=== PATIENT | male | born 1955 | race Caucasian/White ===

== ENCOUNTER → 2016-03-31 | Outpatient (CLI) | payer BC, OTHER ==
[~2016-03-31] MED LIST: ATOR-26 PO; LISI-729 PO; METO25TA56 PO; RXC5 PO
[2016-03-31 12:43] LABS: ESTIMATED AVERAGE GLUCOSE 114 mg/dl; HA1C FLAG Normal (Normal)
[2016-03-31 12:47] LABS: ALT/SGPT 52 U/L (12-78); AST/SGOT 25 U/L (15-37); BLOOD UREA NITROGEN 12 mg/dl (7-18); BUN/CREATININE RATIO 11.5 (10-20); CALCIUM 9.1 mg/dl (8.5-10.1); CARBON DIOXIDE 29 mmol/L (21-32); CHLORIDE 106 mmol/L (98-107); CHOLESTEROL 152 mg/dl (0-200); GLUCOSE 101 mg/dl (70-99); POTASSIUM 4.1 mmol/L (3.5-5.1); SODIUM 142 mmol/L (136-145)
[2016-03-31 12:49] LABS: ALB/GLOB RATIO 1.2 (0.9-2); ALKALINE PHOSPHATASE 118 U/L (45-117); CHOLESTEROL/HDL RATIO 3.6; HDL CHOLESTEROL 42 mg/dl; LDL CHOLESTEROL CALCULATED 81 mg/dl; TRIGLYCERIDES 146 mg/dl (0-150); VERY LOW DENSITY LIPOPROT CALC 29 mg/dl
== END | disposition home or self-care (01) ==
LOC: C.LABPVFM 07:49
PROVIDERS: ATTEND Family Medicine
DX: E78.5 Hyperlipidemia, unspecified (principal); R73.01 Impaired fasting glucose

== ENCOUNTER → 2016-10-01 | Outpatient (CLI) | payer BC ==
[2016-10-01 13:15] LABS: BASO % 0.2 %; BASO ABS # 0.01 K/uL (0-0.2); COMPLETE YES; EOS % 4.1 %; HEMATOCRIT 45.9 % (42-52); IG% 0.3 %; LYMPH % 29.1 %; LYMPH ABS # 1.72 K/uL (1.2-3.4); MEAN CORPUSCULAR HEMOGLOBIN 31.3 pg (25-34); MEAN CORPUSCULAR HGB CONC 32.9 g/dl (32-36); MEAN PLATELET VOLUME 10.4 fL (7.4-10.4); NEUT % 50.3 %; PLATELET COUNT 177 K/uL (130-400); RED BLOOD COUNT 4.83 M/uL (4.7-6.1); WHITE BLOOD COUNT 5.92 K/uL (4.8-10.8)
[2016-10-01 13:33] LABS: ALT/SGPT 50 U/L (12-78); AST/SGOT 27 U/L (15-37); BLOOD UREA NITROGEN 12 mg/dl (7-18); BUN/CREATININE RATIO 12.5 (10-20); CALCIUM 8.9 mg/dl (8.5-10.1); CARBON DIOXIDE 30 mmol/L (21-32); CHLORIDE 106 mmol/L (98-107); CREATININE 0.95 mg/dl (0.60-1.40); GLUCOSE 104 mg/dl (70-99); POTASSIUM 4.3 mmol/L (3.5-5.1); SODIUM 140 mmol/L (136-145)
[2016-10-01 13:36] LABS: ALB/GLOB RATIO 1.2 (0.9-2); ALKALINE PHOSPHATASE 113 U/L (45-117); CHOLESTEROL 129 mg/dl (0-200); CHOLESTEROL/HDL RATIO 3.8; HDL CHOLESTEROL 34 mg/dl; LDL CHOLESTEROL CALCULATED 69 mg/dl; TRIGLYCERIDES 131 mg/dl (0-150); VERY LOW DENSITY LIPOPROT CALC 26 mg/dl
== END | disposition home or self-care (01) ==
LOC: C.LABPVFM 07:56
PROVIDERS: ATTEND Family Medicine
DX: E78.5 Hyperlipidemia, unspecified (principal); I25.10 Atherosclerotic heart disease of native coronary artery without angina pectoris; R73.01 Impaired fasting glucose; K21.9 Gastro-esophageal reflux disease without esophagitis

== ENCOUNTER → 2017-04-06 | Outpatient (CLI) | payer BC ==
[2017-04-06 13:33] LABS: ALT/SGPT 49 U/L (12-78); BLOOD UREA NITROGEN 12 mg/dl (7-18); CALCIUM 9.1 mg/dl (8.5-10.1); CARBON DIOXIDE 27 mmol/L (21-32); CHOLESTEROL 139 mg/dl (0-200); CREATININE 0.99 mg/dl (0.60-1.40); GLUCOSE 108 mg/dl (70-99); SODIUM 139 mmol/L (136-145)
[2017-04-06 13:36] LABS: ALKALINE PHOSPHATASE 85 U/L (45-117); AST/SGOT 27 U/L (15-37); LDL CHOLESTEROL CALCULATED 65 mg/dl; TOTAL PROTEIN 7.2 gm/dl (6.4-8.2)
== END | disposition home or self-care (01) ==
LOC: C.LABPVFM 08:17
PROVIDERS: ATTEND Family Medicine
DX: E78.5 Hyperlipidemia, unspecified (principal); I25.10 Atherosclerotic heart disease of native coronary artery without angina pectoris; R73.01 Impaired fasting glucose; K21.9 Gastro-esophageal reflux disease without esophagitis; D22.9 Melanocytic nevi, unspecified

== ENCOUNTER 2019-04-23 08:08 | Observation (INO) ==
--- NOTE | 2019-03-26 09:57 | PAT Medication Instructions ---
Medication Instructions Date of Service March 26, 2019 Home Medications Medication Instructions Recorded metoprolol tartrate 25 mg tablet 25 mg PO BID #60 tab 10/15/18 metoprolol tartrate 25 mg tablet 25 mg PO BID aspirin [Aspirin Low Dose] 81 mg PO QAM atorvastatin 80 mg PO PM ezetimibe [Zetia] 10 mg PO QAM famotidine 20 mg PO DAILY PRN lisinopril 5 mg PO QAM DO NOT take the morning of surgery lisinopril 5 mg PO QAM Take morning of surgery With a small sip of water, OTHERWISE NOTHING TO EAT OR DRINK AFTER MIDNIGHT: metoprolol tartrate 25 mg tablet 25 mg PO BID aspirin [Aspirin Low Dose] 81 mg PO QAM ezetimibe [Zetia] 10 mg PO QAM famotidine 20 mg PO DAILY PRN (if needed) Take evening before surgery metoprolol tartrate 25 mg tablet 25 mg PO BID atorvastatin 80 mg PO PM famotidine 20 mg PO DAILY PRN (if needed) Other Notes If you have any questions please call us at [phone] or [phone] or [phone] or [phone]
--- NOTE | 2019-03-27 10:24 | Anesthesiology Consultation ---
Date of Service March 27, 2019 Assessment & Plan (1) Encounter for pre-operative examination: Cardiology: 11/15/18: 02/2018 stress test reviewed. "Patient feeling well from a cardiovascular perspective..clinically stable without recurrent angina.. Continue current cardiovascular medications." F/U 6 months recommended. Chart Review Chart Review: Acceptable Risk for Surgery and Patient seen in Pre Admission Testing Teaching & Discussion Pre-Anesthesia Teaching/Discussion Notes: Instructed NPO after midnight before surgery,except medications with 15 cc of water. Medication instructions provided according to the PAT guidelines. History Surgery Operation Date: 04/23/19 07:30 Proposed Procedures p Left Anterior Total Hip Arthroplasty - Ramses Monroy DO Height/Weight Height: 5 ft 7 in Weight: 92.1 kg Allergies Allergy/AdvReac Type Severity Reaction Status Date / Time No Known Allergies Allergy Unknown Verified 03/20/19 09:47 Medications Home Medications Medication Instructions Recorded Confirmed Last Taken aspirin [Aspirin Low Dose] 81 mg PO QAM 03/20/19 03/20/19 Unknown atorvastatin 80 mg PO PM 03/20/19 03/20/19 Unknown ezetimibe [Zetia] 10 mg PO QAM 03/20/19 03/20/19 Unknown famotidine 20 mg PO DAILY PRN 03/20/19 03/20/19 Unknown lisinopril 5 mg PO QAM 03/20/19 03/20/19 Unknown metoprolol tartrate 25 mg tablet 25 mg PO BID #60 tab 03/27/19 Unknown Past Medical History Medical History CAD (coronary artery disease) YASEMIN x2 (2003) GERD (gastroesophageal reflux disease) occasional Hyperlipidemia Hypertension Myocardial Infarction 2003 Obesity Osteoarthritis of hip Exercise / Class Metabolic Activity II 4-5 Yardwork/Stairs/Walk up hill Past Family History Family History Brother FHx: prostate cancer Family history of diabetes mellitus FHx: heart disease Mother Family history of diabetes mellitus FHx: heart disease Father FHx: heart disease Other No family history of adverse response to anesthesia Past Surgical History Surgical History H/O repair of left rotator cuff H/O repair of right rotator cuff x2 History of cardiac cath YASEMIN x2 (2003) History of colonoscopy History of right hip replacement Past Anesthesia History No Family Hx of Anesthesia Complications and Other (*Awareness with right LINDEN*) History of PONV No Hx of PONV and No Hx of Motion Sickness Social History Smoking Status: Former smoker Do You Dip or Chew Tobacco: No (quit many years ago) Smoking End Date: Quit 40+ years ago Hx Alcohol Use: No Alcohol type: beer alcohol intake frequency: a few times a week Hx Substance Use: No substance use type: does not use Review of Systems Patient denies chest pain, shortness of breath, dyspnea on exertion, cough, wheezing, palpitations. Physical Exam Vital Signs VITALS BP 133/85 P 53 (asymptomatic on beta bonnie) TEMP 98.4 SP02 97%RA RESP 18 PHYSICAL Full neck and c-spine range of motion. Full TMJ range of motion. TMD 3 finger breaths Mallampati Score 2 Dentition: intact, several crowns all over Lungs: clear throughout to auscultation Cardiac: regular rate and rhythm, no murmurs noted Spine: normal Carotid arteries: negative bruit Extremities: no edema Testing Laboratory Results 03/27/19 10:45 03/27/19 10:45 PT 10.5 Seconds (9.0-12.0) 03/27/19 10:45 INR 1.0 (0.9-1.1) 03/27/19 10:45 APTT 23.9 Seconds (21.0-31.0) 03/27/19 10:45 Blood Type B Positive 03/27/19 10:45 Antibody Screen NEGATIVE 03/27/19 10:45 Electrocardiogram Date: 03/27/19 SB at 48bpm. iRBBB. No significant change compared to 08/05/09 per cardiology. Chest X-Ray Date: 03/27/19 Findings: + NAD Stress Test Date: 03/29/18 Type: exercise Stress echo negative for inducible ischemia. Borderline increased concentric LV wall thickness. No regional wall motion abnormality. LVEF 55 to 60%. Grade 1 diastolic dysfunction. Mild MR. Mild TR. 87% MPHR. 10 METS.
[2019-03-27 10:57] LABS: Basophils # (auto) 0.02 K/uL (0-0.2); Basophils % (auto) 0.3 %; Eosinophils # (auto) 0.16 K/uL (0-0.5); Eosinophils % (auto) 2.5 %; Hematocrit (blood only) 45.5 % (42-52); Hemoglobin 15.5 g/dL (14.0-18.0); Immature Granulocytes # (auto) 0.01 K/uL (0.00-0.02); Immature Granulocytes % (auto) 0.2 %; Lymphocytes # (auto) 1.82 K/uL (1.2-3.4); Lymphocytes % (auto) 28.2 %; Mean Corpuscular Hemoglobin 32.6 pg (25-34); Mean Corpuscular Hgb Conc 34.1 g/dL (32-36); Mean Corpuscular Volume 95.8 fL (80-100); Monocytes # (auto) 0.69 K/uL (0.11-0.59); Monocytes % (auto) 10.7 %; Neutrophils # (auto) 3.75 K/uL (1.4-6.5); Neutrophils % (auto) 58.1 %; Platelet Count 183 K/uL (130-400); RDW Coefficient of Variation 12.5 % (11.5-14.5); RDW Standard Deviation 43.3 fL (36.4-46.3); Red Blood Count 4.75 M/uL (4.7-6.1); White Blood Count 6.45 K/uL (4.8-10.8)
[2019-03-27 11:11] LABS: Partial Thromboplastin Ratio 0.9; Partial Thromboplastin Time 23.9 Seconds (21.0-31.0); Prothrombin Time 10.5 Seconds (9.0-12.0)
--- NOTE | 2019-03-27 11:18 | XRay Report ---
XR chest Pre-admission PA/Lat CLINICAL HISTORY: pat preoperative COMPARISON STUDY: No previous studies for comparison. FINDINGS: The bones soft tissues and hemidiaphragms are normal. The cardiomediastinal silhouette is n ormal. The lungs are clear. The pulmonary vasculature is normal. IMPRESSION: Negative chest. ACT 112: Negative or not required by law. The above report was generated using voice recognition software. It may contain grammatical, syntax or spelling errors. Electronically signed by: Yony Coffey M.D. 03/27/2019 11:17 AM
[2019-03-27 11:52] LABS: Potassium 4.7 mmol/L (3.5-5.1)
[2019-03-27 13:15] LABS: BUN Creatinine Ratio 13.7 (10-20); Calcium 9.4 mg/dl (8.5-10.1); Creatinine Clr Calc Pharmacy 76.6 ml/min; Est GFR (African American) 86.9
--- NOTE | 2019-03-27 17:54 | Electrocardiogram Report ---
Test Reason : Blood Pressure : / mmHG Vent. Rate : 048 BPM Atrial Rate : 048 BPM P-R Int : 196 ms QRS Dur : 098 ms QT Int : 472 ms P-R-T Axes : 054 015 028 degrees QTc Int : 421 ms Sinus bradycardia Incomplete right bundle branch block Borderline ECG When compared with ECG of 05-AUG-2009 09:10, No significant change was found Confirmed by Tereso Tomas ([id number]) on 03/27/2019 5:53:29 PM Referred By: Ramses Monroy Confirmed By:Tyler Tomas
--- NOTE | 2019-04-17 07:45 | History & Physical Report ---
Date of Service April 17, 2019 Assessment & Plan (1) Osteoarthritis of hip: We will proceed with a left anterior total hip arthroplasty. Postoperatively he will be kept overnight in the hospital for postoperative medical management. We will use aspirin for DVT prophylaxis. He plans to use energy physical therapy upon discharge. Present on Admission?: Yes History of Present Illness Chief Complaint: Primary osteoarthritis of the left hip Primary Care Provider: Donna Watson DO Balbir is a pleasant 64-year-old male who has been complaining of chronic increasing left hip and groin pain. I did a right total hip arthroplasty on him about 3 years ago. He has done very well with that. Unfortunately he is having a lot more left hip pain. He has pain going up and down stairs and getting out of a car. X-rays and clinical examination have been diagnostic for primary osteoarthritis of the left hip. After failing conservative treatment, he has elected to proceed with a left anterior total hip arthroplasty. Allergies Allergy/AdvReac Type Severity Reaction Status Date / Time No Known Allergies Allergy Unknown Verified 03/20/19 09:47 Home Medications Home Medications Medication Instructions Recorded Confirmed Type aspirin [Aspirin Low Dose] 81 mg PO QAM 03/20/19 03/20/19 History atorvastatin 80 mg PO PM 03/20/19 03/20/19 History ezetimibe [Zetia] 10 mg PO QAM 03/20/19 03/20/19 History famotidine 20 mg PO DAILY PRN 03/20/19 03/20/19 History lisinopril 5 mg PO QAM 03/20/19 03/20/19 History metoprolol tartrate 25 mg tablet 25 mg PO BID #60 tab 03/27/19 Rx Past Med/Surg History Medical History CAD (coronary artery disease) YASEMIN x2 (2003) GERD (gastroesophageal reflux disease) occasional Hyperlipidemia Hypertension Myocardial Infarction 2003 Obesity Osteoarthritis of hip Surgical History H/O repair of left rotator cuff H/O repair of right rotator cuff x2 History of cardiac cath YASEMIN x2 (2003) History of colonoscopy History of right hip replacement Family History Brother FHx: prostate cancer Family history of diabetes mellitus FHx: heart disease Mother Family history of diabetes mellitus FHx: heart disease Father FHx: heart disease Other No family history of adverse response to anesthesia Social History Preferred Language: Turkmen Communication Ability: Effective Atmospheric Chemist Required: No Beliefs That Will Affect Care: None marital status: Current Living Situation: Spouse Current Living Situation Comment: and son current occupational status: employed Other Information That Helps Us Care for You: No Feels Safe at Home: Yes Safety Concerns: Feels Safe At This Time Smoking Status: Former smoker Do You Dip or Chew Tobacco: No (quit many years ago) ; Smoking End Date: Quit 40+ years ago ; Second Hand Exposure: Yes (hx) ; Tobacco Cessation Education Requested by Patient: No Hx Alcohol Use: No Hx Substance Use: No Review of Systems All systems reviewed & are unremarkable except as noted in HPI & below Physical Exam Constitutional: WD/WN, vitals as above Eyes: PERRL, conjunctivae normal, anicteric sclerae ENMT: external ear and nose normal, oropharynx normal Neck: trachea midline, no thyromegaly Respiratory: normal respiratory effort Cardiovascular: RRR, no murmur, no edema Gastrointestinal (Abdomen): normal bowel sounds, soft, nontender, no hepatosplenomegaly Musculoskeletal: Physical examination of the left hip reveals decreased range of motion with flexion, internal and external rotation. There is significant groin pain with forced internal rotation of the hip his leg lengths are essentially equal. Psychiatric: A+Ox3, euthymic affect Results & Data Diagnostic Findings Radiographs of the left hip and pelvis demonstrate advanced osteoarthritis with joint space narrowing osteophyte formation and [id number] articulation.
[~2019-04-23 08:08] MED LIST changes: +ACETAMINOPHEN 500 MG TAB PO SCH; -ATOR-26 PO; +BUPIVACAINE 0.5 % 5 MG/1 ML PF 10ML VIAL ONE; +CEFAZOLIN 2000MG 2,000 MG/15 ML SYR IV SCH; +FAMOTIDINE 20 MG TAB PO SCH; +GABAPENTIN 300 MG CAP PO SCH; -LISI-729 PO; +LR 500ML BOLUS, THEN 15ML/HR IV SCH; +LR 60ML/HR IV SCH; -METO25TA56 PO; +ROPIVACAINE 0.5% HCL/PF 150 MG, BUPIVACAINE 0.5% MPF 30 ML, EPINEPHrine 30MG/30ML (OR U... INFIL SCH; -RXC5 PO; +TRANEXAMIC ACID 1,000 MG **IV Intra-op IV SCH; +TRANEXAMIC ACID 1,000 MG **IV Pre-op IV SCH; +dexAMETHasone 4 MG TAB PO SCH
--- NOTE | 2019-04-23 10:42 | History & Physical Bridge Note ---
Date of Service April 23, 2019 History & Physical Bridge Note I have examined the patient, reviewed the History & Physical and in the interval since the performance of the History & Physical I have noted the following changes of clinical significance: no changes noted
[2019-04-23] MEDS ORDERED: MIDAZOLAM HCL 1 MG/ML 2ML VIAL ONE (11:34)
[2019-04-23] MEDS ORDERED: fentaNYL citrate 100 MCG/2 ML VIAL ONE (11:34)
[2019-04-23] MEDS ORDERED: LIDOCAINE HCL 2% 2 ML VIAL/AMP(20MG/ML) INFIL ONE (12:34)
[2019-04-23] MEDS ORDERED: PROPOFOL IV EMULSION 10 MG/ML 20 ML VIAL IV ONE ×3 (12:34)
[2019-04-23] MEDS ORDERED: ORTHO JOINT ANESTHETIC ONE (12:47)
[2019-04-23] MEDS ORDERED: ATROPINE SULFATE 0.1 MG/ML 10ML SYR IV PRN (13:39)
[2019-04-23] MEDS ORDERED: ePHEDrine sulfate 50 MG/ML AMP IV PRN (13:39)
[2019-04-23] MEDS ORDERED: ONDANSETRON INJ 2 MG/ML 2 ML VIAL IV PRN ×2 (13:39→16:42)
[2019-04-23] MEDS ORDERED: fentaNYL citrate 100 MCG/2 ML VIAL IV PRN (13:39)
--- NOTE | 2019-04-23 14:44 | Operative Report ---
PG Post Operative Report Pre & Post Diagnosis Operation Date: 04/23/19 10:40 Pre-Op Diagnosis: LEFT HIP DEGENERATIVE JOINT DISEASE Post-Op Diagnosis: LEFT HIP DEGENERATIVE JOINT DISEASE I identified the patient and participated in the time-out.: Yes Procedure Operation Date: 04/23/19 10:40 Actual Procedures p Left Anterior Total Hip Arthroplasty(Left) - Ramses Monroy DO Surgeon Ramses Monroy DO Software Systems Engineer Ramses De Luna PAC Estimated Blood Loss 200 Findings Consistent with Post-Op Diagnosis Specimens Left femoral head Complications none Disposition Disposition: Recovery Room Indications Balbir is a pleasant 64-year-old male who is been dealing with chronic increasing left hip and groin pain. X-rays and clinical examination have been diagnostic for primary osteoarthritis of the left hip. After failing conservative treatment, he has elected to proceed with a left anterior total hip arthroplasty. I did do a right hip replacement on him in 2015 and he did very well with that. Description of Procedure Implants used I used a Biomet Taperloc total hip arthroplasty system with a size 12 high offset Taperloc stem, a 54 mm G7 cup with a 25mm screw, an E1 polyethylene liner, a 36 mm ceramic head with a 0 neck. Balbir arrived at the hospital for the above procedure. He was seen in the preoperative holding area and the operative extremity was identified and signed. He was given a spinal anesthetic, a preoperative antibiotic, and TXA. He was then taken back to the operating room and laid on the table in the supine position. He was given basic sedation. The operative leg was secured to a Puristst leg positioner. The hip was then prepped and draped in sterile fashion. A timeout was done and the patient and the operative extremity was properly identified. An anterior approach was used. Dissection was taken down through the fascia and the tensor muscle belly was retracted laterally and the rectus was retracted medially. The circumflex vessels were identified and ligated. The capsule was then incised and tagged for later repair. The femoral neck was then cut and the femoral head was removed. The acetabulum was exposed. Time was spent doing a complete circumferential labral release. Sequential reaming of the acetabulum up to a size 53 reamer was done. Final reamings were done under fluoroscopy to ensure appropriate version. A Biomet 54 mm G7 cup was then impacted into place. A single 25 mm screw was placed. The E1 polyethylene liner was then snapped into place. Surrounding soft tissues were then injected with 100 cc of an orthopedic pain control cocktail. The proximal femur was then exposed. Sequential broaching up to a size 12 broach was done. Off that broach a size 36 head with a 0 neck was trialed. The hip was reduced and fluoroscopic images showed anatomic alignment of the implants in acceptable length. The broach was removed. The final size 12 high offset Taperloc stem was then impacted into place. A ceramic 36 mm head with a 0 neck was then impacted onto the stem and the hip was reduced. Final fluoroscopic images showed anatomic alignment of the hip. The capsule was then closed with #1 Vicryl suture. A dilute betadyne lavage was then done for 3 minutes. The joint was then irrigated with normal saline solution. The fascia was closed with #1 PDS suture. Skin was closed with 2-0 Vicryl, jean paul, and a Bailey VAC dressing. He was then transferred to a hospital bed and taken to the post anesthesia care unit in stable condition. He tolerated the procedure well. Ramses De Luna PA-C, was present for the entire procedure. He was critical for patient positioning, prepping, draping, retraction exposure, wound closure and application of sterile dressing. I attest to the content of the Intraoperative Record and any orders documented therein. Any exceptions are noted below.
--- NOTE | 2019-04-23 14:55 | Fluoroscopy Report ---
FL hip LT 1V CLINICAL HISTORY: Left hip prosthesis COMPARISON STUDY: None. FLUOROSCOPY TIME: 26 seconds. FINDINGS: Single fluoroscopic spot images of the left hip demonstrate a left total hip arthroplasty. The hardware is intact. No fracture or dislocation. IMPRESSION: Fluoroscopy provided for left total hip arthroplasty. ACT 112: Negative or not required by law. Electronically signed by: Simon Arellano M.D. 04/23/2019 2:54 PM
--- NOTE | 2019-04-23 15:22 | XRay Report ---
XR hip 1V LT w pelvis CLINICAL HISTORY: IN PACU - A/P PELVIS and LATERAL HIP COMPARISON: 02/12/2016 DISCUSSION: Total left hip arthroplasty. There is good contact between the metallic prosthetic and un derlying bone. Expected soft tissue postoperative change. Pre-existing total right hip arthroplasty IMPRESSION: . Anatomic alignment post total left hip arthroplasty. ACT 112: Negative or not required by law. The above report was generated using voice recognition software. It may contain grammatical, syntax or spelling errors. Electronically signed by: Yony Coffey M.D. 04/23/2019 3:20 PM
--- NOTE | 2019-04-23 16:00 | Anesthesiology Progress Note ---
Date of Service April 23, 2019 Anesthesia Post Procedure Vital Signs Vital Signs: Temp Pulse Pulse Resp BP Pulse Ox 04/23/19 15:49 74 16 109/65 96 04/23/19 15:40 36.8 C 74 16 109/65 97 04/23/19 15:30 75 16 105/61 98 04/23/19 15:20 83 14 101/64 97 04/23/19 15:10 85 18 102/64 95 04/23/19 15:04 36.6 C 90 16 100/74 96 04/23/19 08:46 37.0 C 60 18 143/79 H 96 Pain Intensity Left Hip: Pain Intensity: 2 Transfer of Care Handoff Completed per policy Notes Mental Status: alert / awake / arousable Patient Amnestic to Procedure: Yes Nausea / Vomiting: adequately controlled Pain: adequately controlled Airway Patency, RR, SpO2: stable & adequate BP & HR: stable & adequate Hydration State: stable & adequate Neuraxial Anesthesia: was administered and sensory block is resolving Anesthetic Complications: no major complications apparent
[2019-04-23] MEDS ORDERED: INFLUENZA VACCINE HIGH DOSE 65+ 0.5 ML SYR IM ONE (16:38)
[2019-04-23] MEDS ORDERED: INFLUENZA ADMINISTRATION CHARGE ONE (16:38)
[2019-04-23] MEDS ORDERED: PNEUMOCOCCAL POLYSACCHARIDES 25 MCG/0.5 ML VIAL/SYR IM ONE (16:38)
[2019-04-23] MEDS ORDERED: PNEUMOCOCCAL ADMINISTRATION CHARGE ONE (16:38)
[2019-04-23] MEDS ORDERED: HYDROmorphone INJ 0.5 MG/0.5 ML SYR IV PRN (16:42)
[2019-04-23] MEDS ORDERED: NALOXONE HCL 0.4 MG/1 ML VIAL/CARP IV PRN (16:42)
[2019-04-23] MEDS ORDERED: FAMOTIDINE 20 MG TAB PO PRN (16:42)
[2019-04-23] MEDS ORDERED: MAGNESIUM HYDROXIDE SUSP 30 ML UDC PO PRN (16:42)
[2019-04-23] MEDS ORDERED: OXYCODONE HCL IR 5 MG TAB (IMMEDIATE RELEASE) PO PRN (16:42)
[2019-04-23] MEDS ORDERED: METOCLOPRAMIDE HCL INJ 5 MG/ML 2 ML VIAL IV PRN (16:42)
[2019-04-23] MEDS ORDERED: bisacodyL 10 MG SUPP PR PRN (16:42)
[2019-04-23] MEDS: SODIUM CHLORIDE 0.9% 1000ML 1,000 ML IV SCH (17:01)
[2019-04-23] MEDS: KETOROLAC 30 MG/ML VIAL IV SCH ×2 (17:02→22:04)
[2019-04-23] MEDS: CEFAZOLIN 2000MG 2,000 MG/15 ML SYR IV SCH (20:27)
[2019-04-23] MEDS: METOPROLOL TARTRATE 25 MG TAB PO SCH (20:27)
[2019-04-23] MEDS: DOCUSATE SODIUM 100 MG CAP PO SCH (20:28)
[2019-04-23] MEDS: ASPIRIN 81 MG ECTAB PO SCH (20:28)
[2019-04-23] MEDS ORDERED: SENNA 8.6 MG TAB PO SCH (21:00)
[2019-04-23] MEDS ORDERED: ATORVASTATIN 40 MG TAB PO SCH (21:00)
[2019-04-23] MEDS: ACETAMINOPHEN 500 MG TAB PO SCH (21:25)
[2019-04-24] MEDS: SODIUM CHLORIDE 0.9% 1000ML 1,000 ML IV SCH (03:20)
[2019-04-24] MEDS: KETOROLAC 30 MG/ML VIAL IV SCH ×2 (05:47→10:45)
[2019-04-24] MEDS: ACETAMINOPHEN 500 MG TAB PO SCH (05:47)
[2019-04-24] MEDS: CEFAZOLIN 2000MG 2,000 MG/15 ML SYR IV SCH (05:47)
--- NOTE | 2019-04-24 06:35 | Orthopedic Progress Note ---
Date of Service April 24, 2019 Assessment & Plan (1) History of left hip replacement: Overall is doing very well. Is not having much pain in the left hip. The block should wear off throughout the morning. He will be seen by physical therapy later this morning for ambulation and range of motion exercises. He is on aspirin for DVT prophylaxis. He can be discharged home later today. He will follow-up with orthopedics in 2 weeks. Present on Admission?: Yes Subjective Balbir was seen and examined at bedside this morning. Overall is doing fairly well. The nerve block is still working and his leg was buckling on him when he was trying to ambulate. He is not having much pain in the hip. He has no new complaints. Physical Exam Musculoskeletal: On physical examination of the left hip, the Bailey VAC dressing is to suction. His leg lengths are equal. He has active dorsiflexion and plantarflexion of the left ankle. Results & Data ([facility]) Vital Signs (Past 12 Hours) Vital Signs Temp Pulse Resp BP BP Pulse Ox 04/24/19 03:15 36.4 C L 64 16 118/75 95 04/23/19 23:39 36.4 C L 60 16 126/83 94 04/23/19 21:27 36.4 C L 75 16 121/81 95 04/23/19 20:26 83 124/82 04/23/19 19:26 36.3 C L 84 16 129/81 95 PG Care Time/CCT Total # of Minutes Spent Total Time Spent with Patient: Total time spent is greater than 50% in coordination of care (as documented) at patient's floor/unit and/or counseling patient: Coding Level of Care Code None Diagnoses History of left hip replacement Z96.642
--- NOTE | 2019-04-24 06:36 | Discharge Summary ---
Date of Service April 24, 2019 Admission HPI Per Admitting Provider Balbir is a pleasant 64-year-old male who has been complaining of chronic increasing left hip and groin pain. I did a right total hip arthroplasty on him about 3 years ago. He has done very well with that. Unfortunately he is having a lot more left hip pain. He has pain going up and down stairs and getting out of a car. X-rays and clinical examination have been diagnostic for primary osteoarthritis of the left hip. After failing conservative treatment, he has elected to proceed with a left anterior total hip arthroplasty. Principal Diagnosis Left total hip arthroplasty Discharge Data Allergies Allergy/AdvReac Type Severity Reaction Status Date / Time No Known Allergies Allergy Unknown Verified 04/23/19 08:38 Consultations 04/24/19 08:00 Consult Case Management - Discharge Planning Routine Procedures Performed Operation Date: 04/23/19 10:40 Actual Procedures p Left Anterior Total Hip Arthroplasty(Left) - Ramses Monroy DO Ordered Studies 04/23/19 10:40 FL fluoroscopy <1hr Routine FL hip LT 1V Routine Hospital Course (1) History of left hip replacement: On April 23, 2019 Balbir arrived at [facility] in the hospital and underwent a left anterior total hip arthroplasty without complication. He had a spinal anesthetic. Postoperatively he was started on aspirin for DVT prophylaxis and discharged to general orthopedic floors. His hospital course was uneventful. On postop day #1 his H&H was stable and his pain was well controlled. He was able to participate well with physical therapy doing ambulation and range of motion exercises. He was then discharged to home. He will follow-up with orthopedics in 2 weeks. Total Time Total Time Spent Total Time Spent (In Minutes): 20 Discharge Plan Discharge Items Patient Disposition: Home - Home Health Services Reason For Visit: LEFT HIP DEGENERATIVE JOINT DISEASE Discharge Diagnosis: Left total hip arthroplasty Activity: As commented below Non-emergency contact: Surgeon Call non-emergency contact if: your wound has increased redness and your wound has increased drainage Follow-up/Referrals: Donna Watson DO [Primary Care Provider] - Diet: Regular Addtl Attending Provider Instructions: Activity and Therapy Recommendations: * If you are using [facility] then therapy will be provided at your home until they feel you have accomplished all of your goals. * If you are using [facility] then Physical Therapy will be provided until they feel you are ready to start Outpatient Physical Therapy. * If you are not using home therapy then Outpatient Physical Therapy should start about 3-5 days from your day of surgery. Therapy will last about 6-10 weeks * You were shown a series of exercises in the hospital. Do these exercises three times each day including the exercises you were shown in physical therapy. * Get up and walk several times each day.~ For the first four weeks, try not to stand or walk for more than one hour at a time. If you do stand or walk for more than one hour, you will not hurt anything, but your leg will likely swell.~~ * As you feel comfortable, you may change from the walker or crutches to a cane and~then to independent walking. Medications: * Narcotic You will likely be sent home from the hospital with a prescription for the narcotic pain medication that worked best throughout your stay. * Aspirin Most patients will be required to take Aspirin 81mg twice a day for 6 weeks after surgery. This is obtained [id number] and a prescription is not necessary. * Other medications may be prescribed for specific circumstances. If you have any questions, please call the office at . * Resume previous home medications unless otherwise instructed TEDs/Elastic Stockings: The white elastic stockings help limit swelling and prevent blood clots from forming in your legs. The more you wear them, the more they work. Wear them for six weeks. Dressing Care: You will likely have a purple VAC dressing after surgery. This dressing will keep the incision dry and promote early healing. After about 7 days the batteries will wear out and the VAC will lose suction. Simply remove the dressing at that time and throw everything away, including the small suction machine. Then, you may leave the jean paul open to air or cover them with a dry dressing so they do not rub on your pants. The jean paul will be removed at your 2 week follow-up appointment. Showering: You may shower immediately with the purple VAC dressing. Let the shower spray hit your opposite side and slowly pat the plastic dry. Do not soak the dressing. After the dressing is removed you may shower normally with the jean paul exposed. Let soapy water run over the jean paul and pat them dry. Things To Watch For: * Drainage from the incision site that occurs more than one week after your surgery. * Increased redness at the incision site. * Fever above 102 degrees Fahrenheit. * Unusual chest pain or shortness of breath. * Call [facility] at with any of the above problems Follow-Up Visit: Follow-up with Dr. Monroy 2-3 weeks after your day of surgery. An appointment was probably scheduled when you signed-up for surgery in the office. If you have any questions call Office Instructions: More detailed instructions as well as Frequently Asked Questions were provided in a folder by our office when you signed-up for surgery. Please review these instructions when you get home. If you have any further questions or concerns, please feel free to call the office at [phone] Pending Studies at Discharge: No Stand-Alone Forms: [facility] [email or web address], Smoking Cessation Medications and DC Order Prescriptions: New oxycodone 5 mg Tablet 5 mg PO Q4H PRN (Reason: pain) Qty: 20 RF: 0 Continued metoprolol tartrate 25 mg tablet 25 mg PO BID Qty: 60 RF: 0 atorvastatin 80 mg Tablet 80 mg PO PM RF: 0 lisinopril 5 mg Tablet 5 mg PO QAM RF: 0 ezetimibe [Zetia] 10 mg Tablet 10 mg PO QAM RF: 0 famotidine 20 mg Tablet 20 mg PO DAILY PRN (Reason: Heartburn) RF: 0 Changed aspirin [Aspirin Low Dose] 81 mg Tablet,Delayed Release (Dr/Ec) 81 mg PO BID 42 Days Qty: 0 RF: 0 Discharge Orders: Discharge Order (Routine); Ordered 04/24/19 Ordered By: Ramses Monroy Admission Data Admit Date/Time: 04/23/19 15:04 Attending Provider: Ramses Monroy Admit Provider: Ramses Monroy Primary Care Provider: Donna Watson Coding Level of Care Code D/C Day Management <30 mins Diagnoses History of left hip replacement Z96.642
[2019-04-24 06:46] LABS: Hematocrit (blood only) 38.8 % (42-52); Hemoglobin 13.2 g/dL (14.0-18.0); Immature Granulocytes # (auto) 0.04 K/uL (0.00-0.02); Immature Granulocytes % (auto) 0.3 %; Lymphocytes # (auto) 0.96 K/uL (1.2-3.4); Lymphocytes % (auto) 7.6 %; Mean Corpuscular Hemoglobin 31.8 pg (25-34); Mean Corpuscular Volume 93.5 fL (80-100); Mean Platelet Volume 10.5 fL (7.4-10.4); Monocytes # (auto) 1.16 K/uL (0.11-0.59); Monocytes % (auto) 9.2 %; Neutrophils % (auto) 82.9 %; Platelet Count 149 K/uL (130-400); RDW Coefficient of Variation 12.3 % (11.5-14.5); RDW Standard Deviation 41.4 fL (36.4-46.3); Red Blood Count 4.15 M/uL (4.7-6.1); White Blood Count 12.66 K/uL (4.8-10.8)
[2019-04-24 07:23] LABS: BUN Creatinine Ratio 15.6 (10-20); Calcium 8.6 mg/dl (8.5-10.1); Creatinine Clr Calc Pharmacy 78.2 ml/min; Est GFR (African American) 85.9; Est GFR (Non-African American) 74.1; Potassium 4.2 mmol/L (3.5-5.1)
[2019-04-24] MEDS ORDERED: dexAMETHasone 4 MG TAB PO SCH (08:00)
--- NOTE | 2019-04-24 08:03 | Anesthesiology Progress Note ---
Date of Service April 24, 2019 Anesthesia Post Procedure Vital Signs Vital Signs: Temp Pulse Pulse Pulse Resp BP BP 04/24/19 03:15 36.4 C L 64 16 118/75 04/23/19 23:39 36.4 C L 60 16 126/83 04/23/19 21:27 36.4 C L 75 16 121/81 04/23/19 20:26 83 124/82 04/23/19 19:26 36.3 C L 84 16 129/81 04/23/19 18:31 36.4 C L 82 16 124/79 04/23/19 17:17 69 16 121/77 04/23/19 17:07 36.3 C L 04/23/19 16:50 76 16 112/74 04/23/19 16:22 36.7 C 77 106/66 04/23/19 16:00 36.8 C 74 16 105/63 04/23/19 15:50 74 16 109/65 04/23/19 15:40 36.8 C 74 16 109/65 04/23/19 15:30 75 16 105/61 04/23/19 15:20 83 14 101/64 04/23/19 15:10 85 18 102/64 04/23/19 15:04 36.6 C 90 16 100/74 04/23/19 08:46 37.0 C 60 18 143/79 H Pulse Ox 04/24/19 03:15 95 04/23/19 23:39 94 04/23/19 21:27 95 04/23/19 20:26 04/23/19 19:26 95 04/23/19 18:31 94 04/23/19 17:17 95 04/23/19 17:07 04/23/19 16:50 98 04/23/19 16:22 98 04/23/19 16:00 99 04/23/19 15:50 96 04/23/19 15:40 97 04/23/19 15:30 98 04/23/19 15:20 97 04/23/19 15:10 95 04/23/19 15:04 96 04/23/19 08:46 96 Pain Intensity Left Hip: Pain Intensity: 2 Notes Mental Status: alert / awake / arousable and participated in evaluation Patient Amnestic to Procedure: Yes Nausea / Vomiting: adequately controlled Pain: adequately controlled Airway Patency, RR, SpO2: stable & adequate BP & HR: stable & adequate Hydration State: stable & adequate Neuraxial Anesthesia: was administered and sensory block resolved Anesthetic Complications: no major complications apparent and Pt Satisfied with anesthetic care
[2019-04-24] MEDS: ASPIRIN 81 MG ECTAB PO SCH (09:00)
[2019-04-24] MEDS: METOPROLOL TARTRATE 25 MG TAB PO SCH (09:00)
[2019-04-24] MEDS ORDERED: EZETIMIBE 10 MG TABLET PO SCH (09:00)
[2019-04-24] MEDS: DOCUSATE SODIUM 100 MG CAP PO SCH (09:00)
[2019-04-24] MEDS ORDERED: lisinopriL 5 MG TAB PO SCH (09:00)
[2019-04-24] MEDS ORDERED: MULTIVITAMIN TAB PO SCH (09:00)
== END 2019-04-24 13:53 | disposition home health service (06) ==
LOC: 3E 08:08 → ASU 08:08